=== PATIENT | female | born 1970 | race African-American/Black ===

== ENCOUNTER 2022-01-30 15:56 | Emergency (ER) | payer OTHER, MEDICAID ==
[~2022-01-30] VITALS: Ht 147.3 cm; Wt 49.0 kg
[2022-01-30 15:58] VITALS: BP 149/104
[2022-01-30] MEDS ORDERED: KETOROLAC 30MG/ML VIAL IV STA (16:23)
[2022-01-30] MEDS ORDERED: SODIUM CHLORIDE 0.9% 1,000 ML IV ONE (16:30)
[2022-01-30 16:52] LABS: BASOPHILS % 0.3 % (0.0-2.0); EOSINOPHILS % 0.9 % (0.0-5.0); HEMATOCRIT. 42.3 % (36.0-48.0); HEMOGLOBIN. 14.1 g/dL (12.0-16.0); LYMPHOCYTES % 22.4 % (20.0-50.0); MEAN CORPUSCULAR HEMOGLOBIN 26.5 pg (28.0-32.0); MEAN CORPUSCULAR VOLUME 79.7 fL (81.0-99.0); MEAN PLATELET VOLUME 8.7 fl (7.4-10.4); MONOCYTES % 5.3 % (2.0-8.0); NEUTROPHILS % 71.1 % (40.0-76.0); PLATELET 244 x1000/uL (130-400); RED BLOOD CELL COUNT 5.31 mill/uL (4.2-5.4); RED CELL DISTRIBUTION WIDTH 13.6 % (11.6-14.6)
[2022-01-30 17:00] LABS: PROTHROMBIN TIME 10.7 sec (9.6-11.0)
[2022-01-30 17:07] LABS: CHLORIDE 104 mEq/L (98-107)
[2022-01-30 17:17] LABS: HCG SCREEN NEGATIVE
[2022-01-30] MEDS ORDERED: POLY17PO3 MT (21:44)
== END 2022-01-30 21:59 ==
LOC: ER 15:56
DX: K59.00 Constipation, unspecified (principal); K44.9 Diaphragmatic hernia without obstruction or gangrene; R03.0 Elevated blood-pressure reading, without diagnosis of hypertension; G40.909 Epilepsy, unspecified, not intractable, without status epilepticus; F15.90 Other stimulant use, unspecified, uncomplicated; F11.90 Opioid use, unspecified, uncomplicated; Z85.9 Personal history of malignant neoplasm, unspecified; Z88.0 Allergy status to penicillin
CPT/HCPCS: 36415; 71045; 74176; 80053; 83690; 84484; 84703; 85025; 85610; 86850; 86900; 86901; 93005; 96374; 99285; J1885; J7030